=== PATIENT | male | born 1960 | race Caucasian/White ===

== ENCOUNTER 2018-12-15 20:29 | Emergency (ER) | payer SELFPAY ==
[~2018-12-15] VITALS: Ht 167.6 cm; Wt 90.0 kg
[2018-12-15 20:31] VITALS: BP 142/80
== END 2018-12-16 00:28 | disposition left against medical advice (07) ==
LOC: ER 20:29
DX: Z53.21 Procedure and treatment not carried out due to patient leaving prior to being seen by health care provider (principal); R07.9 Chest pain, unspecified
CPT/HCPCS: 93005